=== PATIENT | male | born 1945 ===

== ENCOUNTER 2017-06-20 10:40 | Inpatient (IN) | payer MEDICARE ==
[~2017-06-20] VITALS: Ht 165.1 cm; Wt 74.4 kg
[2017-06-20] MEDS ORDERED: MAGNESIUM HYDROXIDE 30 ML LIQUID UDC PO PRN ×2 (11:00→13:30)
[2017-06-20] MEDS ORDERED: ACETAMINOPHEN 325 MG TABLET PO PRN (11:00)
[2017-06-20] MEDS ORDERED: Z GUARD REMEDY PASTE 57 GM TUBE TOP PRN (11:00)
--- NOTE | 2017-06-20 12:00 | NUR ---
SBAR report received from Piedad THOMASON at [facility]. PT received arriving via private car, accompanied by son Chandana. Pt oriented to unit and room. Board updated. VS taken to be 146/64, 63, 18, 97% RA, 98.0 temp, and denies pain at this time. Pt assessed, no evidence of SOB, skin intact with 3 old scars, 1 on the right side of the head, left of the upper and lower abd, and left hip to knee. AOx4. Bed in lowest and locked position with side rails up x2. Son visiting at the bedside currently sitting up to eat lunch. All needs attended to. Call light within reach, will continue to monitor.
[2017-06-20] MEDS ORDERED: MAGN400O6 PO (13:10)
[2017-06-20] MEDS ORDERED: LEVE500T9 PO (13:10)
[2017-06-20] MEDS ORDERED: NYST50002 PO (13:10)
[2017-06-20] MEDS ORDERED: ALBU2.5V38 IH (13:10)
[2017-06-20] MEDS ORDERED: FAMO20TA41 PO (13:10)
[2017-06-20] MEDS ORDERED: ZOLP5TAB2 PO (13:10)
[2017-06-20] MEDS ORDERED: ENOX40DI SQ (13:10)
[2017-06-20] MEDS ORDERED: AMIO200T2 PO (13:10)
[2017-06-20] MEDS ORDERED: NA P133E RC (13:10)
[2017-06-20] MEDS ORDERED: TAMS-3 PO (13:10)
[2017-06-20] MEDS ORDERED: DOCU-141 PO (13:10)
[2017-06-20] MEDS ORDERED: MULT-30 PO (13:10)
[2017-06-20] MEDS ORDERED: ATOR20TA PO (13:10)
[2017-06-20] MEDS ORDERED: ACET-2154 PO (13:10)
[2017-06-20] MEDS ORDERED: BISA10SU8 RC (13:10)
[2017-06-20] MEDS ORDERED: BISACODYL 10 MG SUPP.RECT RC PRN (13:30)
[2017-06-20] MEDS: ENOXAPARIN SODIUM 40 MG/0.4 ML DISP.SYRIN SQ SCH (13:30)
[2017-06-20] MEDS ORDERED: FLEET ENEMA 133 ML BOTTLE RC PRN (13:30)
[2017-06-20 15:20] LABS: BASOPHILS # (AUTO) 0.1 K/uL (0.0-8.0); BASOPHILS % (AUTO) 0.7 % (0.0-2.0); EOSINOPHILS # (AUTO) 0.1 K/uL (0.0-0.7); EOSINOPHILS % (AUTO) 1.7 % (0.0-7.0); HEMATOCRIT 45.2 % (36.7-47.1); HEMOGLOBIN 15.1 g/dL (12.5-16.3); LYMPHOCYTES # (AUTO) 2.5 K/uL (20.0-40.0); LYMPHOCYTES % (AUTO) 29.3 % (20.5-51.5); MEAN CORPUSCULAR HEMOGLOBIN 31.2 uug (23.8-33.4); MEAN CORPUSCULAR HGB CONC 33 g/dL (32.5-36.3); MEAN CORPUSCULAR VOLUME 93.5 fL (73.0-96.2); MONOCYTES # (AUTO) 0.8 K/uL (2.0-10.0); MONOCYTES % (AUTO) 8.7 % (0.0-11.0); NEUTROPHILS # (AUTO) 5.1 K/uL (1.8-8.9); NEUTROPHILS % (AUTO) 59.6 % (38.5-71.5); PLATELET COUNT (AUTO) 208 K/uL (152-348); RED BLOOD CELL COUNT(AUTO) 4.83 MIL/uL (4.06-5.63); WHITE BLOOD COUNT (AUTO) 8.6 K/uL (3.6-10.2)
[2017-06-20 15:29] LABS: BILIRUBIN,TOTAL 0.3 mg/dL (0.2-1.0); CREATININE 1.6 mg/dL (0.6-1.3); MAGNESIUM 1.8 mg/dL (1.8-2.4); PHOSPHOROUS 3.2 mg/dL (2.5-4.9); POTASSIUM 4.8 mmol/L (3.5-5.1); TOTAL PROTEIN, SERUM 7.2 g/dL (6.4-8.2)
[2017-06-20 16:04] VITALS: BP 139/77
[2017-06-20] MEDS ORDERED: NYSTATIN 500000 UNIT PO SCH (17:00)
[2017-06-20] MEDS: DOCUSATE SODIUM 100 MG CAPSULE PO SCH ×2 (17:47→20:32)
[2017-06-20] MEDS: LEVETIRACETAM 500 MG TABLET PO SCH (17:48)
[2017-06-20] MEDS: NYSTATIN SUSPENSION 5 ML LIQUID UDC PO SCH (17:48)
[2017-06-20] MEDS ORDERED: ALBUTEROL SULFATE 2.5 MG/3 ML NEBU IH SCH (18:00)
[2017-06-20] MEDS ORDERED: ACETAMINOPHEN 325 MG TABLET PO SCH (18:00)
--- NOTE | 2017-06-20 19:30 | NUR ---
Received patient in bed. Family at bedside. Patient is alert and verbally responsive. Able to make needs known. Denies any pain and discomfort. No acute distress. No SOB. Kept clean and dry. All needs attended to promptly. Call light within reach. Will continue to monitor.
[2017-06-20] MEDS: ATORVASTATIN 20 MG TABLET PO SCH (20:31)
[2017-06-20] MEDS: TAMSULOSIN HCL 0.4 MG CAP.SR.24H PO SCH (20:31)
[2017-06-20] MEDS: FAMOTIDINE 20 MG TABLET PO SCH (20:31)
[2017-06-20] MEDS: ZOLPIDEM 5 MG TABLET PO SCH (20:34)
[2017-06-20 20:39] VITALS: BP 144/64
[2017-06-20] MEDS: ALBUTEROL SULFATE 2.5 MG/3 ML NEBU NEB SCH (23:30)
[2017-06-21] MEDS: ALBUTEROL SULFATE 2.5 MG/3 ML NEBU NEB SCH ×3 (05:30→19:00)
[2017-06-21 05:48] VITALS: BP 99/130
[2017-06-21 05:51] VITALS: BP 130/78
--- NOTE | 2017-06-21 06:40 | NUR ---
Patient slept throughout the night. No c/o pain and discomfort. No acute distress. No SOB. Kept clean and dry. All needs attended to promptly. Call light within reach. Will continue to monitor.
[2017-06-21 08:00] VITALS: BP 116/62
--- NOTE | 2017-06-21 08:10 | NUR ---
Received patient awake, alert x4, resting in bed. Denies any pain. Not in any form of distress. Still with left sided weakness. Morning care done.
[2017-06-21] MEDS: DOCUSATE SODIUM 100 MG CAPSULE PO SCH ×3 (08:44→20:29)
[2017-06-21] MEDS: MULTIVIT, IRON, MIN NO. 8, FA TABLET PO SCH (08:44)
[2017-06-21] MEDS: NYSTATIN SUSPENSION 5 ML LIQUID UDC PO SCH ×3 (08:44→17:16)
[2017-06-21] MEDS: FAMOTIDINE 20 MG TABLET PO SCH ×2 (08:45→20:30)
[2017-06-21] MEDS: LEVETIRACETAM 500 MG TABLET PO SCH ×2 (08:45→17:16)
[2017-06-21] MEDS: AMIODARONE HCL 200 MG TABLET PO SCH (08:46)
[2017-06-21] MEDS: ENOXAPARIN SODIUM 40 MG/0.4 ML DISP.SYRIN SQ SCH (08:49)
[2017-06-21] MEDS ORDERED: [UNRECOGNIZED DRUG - OTHER] PO SCH (09:00)
--- NOTE | 2017-06-21 10:53 | NUR ---
Up with physical therapy, tolerating therapy well. No pain or discomfort noted.
--- NOTE | 2017-06-21 19:30 | NUR ---
Received patient in bed. Patient is alert and verbally responsive. Able to make needs known. Denies any pain and discomfort. No acute distress. No SOB. Kept clean and dry. All needs attended to promptly. Call light within reach. Will continue to monitor
[2017-06-21 20:24] VITALS: BP 127/64
[2017-06-21] MEDS: ATORVASTATIN 20 MG TABLET PO SCH (20:30)
[2017-06-21] MEDS: TAMSULOSIN HCL 0.4 MG CAP.SR.24H PO SCH (20:30)
[2017-06-21] MEDS: ZOLPIDEM 5 MG TABLET PO SCH (20:30)
--- NOTE | 2017-06-21 21:04 | NUR ---
Patient has been refusing scheduled Ambien the past two nights and verbalizes that he doesn't needed. Dr. Cameron made aware and received order to discontinue medication. Order noted and carried out.
[2017-06-22] MEDS: ALBUTEROL SULFATE 2.5 MG/3 ML NEBU NEB SCH ×4 (00:32→18:54)
[2017-06-22 05:00] VITALS: BP 122/64
--- NOTE | 2017-06-22 06:20 | NUR ---
Patient slept comfortably throughout the night. No c/o pain and discomfort. No acute distress. No SOB. Kept clean and dry. All needs attended to promptly. Call light within reach. Will continue to monitor.
[2017-06-22 08:00] VITALS: BP 136/75
--- NOTE | 2017-06-22 08:00 | NUR ---
Received patient awake, alert x4. Morning care done. No SOB noted, still with left sided weakness. No complaints of pain.
--- NOTE | 2017-06-22 09:00 | NUR ---
Up with speech therapy, tolerating therapy well. No complaints of pain or discomfort.
[2017-06-22] MEDS: DOCUSATE SODIUM 100 MG CAPSULE PO SCH ×3 (09:18→20:19)
[2017-06-22] MEDS: FAMOTIDINE 20 MG TABLET PO SCH ×2 (09:18→20:19)
[2017-06-22] MEDS: NYSTATIN SUSPENSION 5 ML LIQUID UDC PO SCH ×3 (09:18→17:21)
[2017-06-22] MEDS: AMIODARONE HCL 200 MG TABLET PO SCH (09:19)
[2017-06-22] MEDS: MULTIVIT, IRON, MIN NO. 8, FA TABLET PO SCH (09:19)
[2017-06-22] MEDS: LEVETIRACETAM 500 MG TABLET PO SCH ×2 (09:19→17:21)
[2017-06-22] MEDS: ENOXAPARIN SODIUM 40 MG/0.4 ML DISP.SYRIN SQ SCH (09:21)
--- NOTE | 2017-06-22 11:47 | NUR ---
Patient found on floor beside his wheel chair. Call light within reach. According to patient, he wanted to move from his wheelchair to hid bed and he said "I know I could have called since I can reach the call light." Patient said he slid from his wheel chair because his foot got caught up with the wheels of the wheel chair while he was trying to move. No wounds or injuries noted. Patient denies of any pain. Patient claims he landed on his buttocks. No injury to head. No LOC, dizziness or SOB noted. Informed Dr. Cameron and Dr Martins of incident. Informed Lens Marker Hui of incident. No new orders. Son, Chandana Bruner informed of incident.
--- NOTE | 2017-06-22 13:30 | NUR ---
Dr Cameron informed of fall once again, has no new orders.
--- NOTE | 2017-06-22 13:46 | NUR ---
INTERDISCIPLINARY TEAM CONFERENCE
[2017-06-22 16:00] VITALS: BP 142/78
--- NOTE | 2017-06-22 18:15 | NUR ---
No BM. Offered prune juice
[2017-06-22 19:30] VITALS: BP 136/57
--- NOTE | 2017-06-22 19:30 | NUR ---
Patient stable at start of shift with no acute distress noted. A/Ox4 & able to make all needs known. Pertinent assessment completed. Vital signs within range at start of shift. Per day shift RN, patient had a fall during the day. NNO from MD. Patient denies pain & SOB. Bed in low position & locked. Call light within reach of patient. Will continue to monitor through shift.
[2017-06-22] MEDS: TAMSULOSIN HCL 0.4 MG CAP.SR.24H PO SCH (20:19)
[2017-06-22] MEDS: ATORVASTATIN 20 MG TABLET PO SCH (20:19)
[2017-06-23] MEDS: ALBUTEROL SULFATE 2.5 MG/3 ML NEBU NEB SCH ×4 (00:31→18:30)
--- NOTE | 2017-06-23 06:30 | NUR ---
Upon skin care this AM, patient noted with a small skin tear in sacral area. Pics taken & placed in chart. Will endorse to day shift nurse to f/u with wound care nurse.
[2017-06-23 08:02] VITALS: BP 121/69
--- NOTE | 2017-06-23 08:28 | NUR ---
PT AWAKE ALERT RESPONSIVE ON ROOM AIR SHOWING NO SIGNS OF RESPIRATORY DISTRESS OR SOB. BREATHING TX OFFERED BUT PATIENT REFUSED AND STATES THAT HIS BREATHING IS FINE. BREATH SOUNDS CLEAR AND SPO2 96%. WILL CONTINUE TO MONITOR.
[2017-06-23] MEDS: FAMOTIDINE 20 MG TABLET PO SCH ×2 (09:12→20:14)
[2017-06-23] MEDS: LEVETIRACETAM 500 MG TABLET PO SCH ×2 (09:13→17:09)
[2017-06-23] MEDS: AMIODARONE HCL 200 MG TABLET PO SCH (09:13)
[2017-06-23] MEDS: DOCUSATE SODIUM 100 MG CAPSULE PO SCH ×3 (09:14→20:14)
[2017-06-23] MEDS: MULTIVIT, IRON, MIN NO. 8, FA TABLET PO SCH (09:14)
[2017-06-23] MEDS: NYSTATIN SUSPENSION 5 ML LIQUID UDC PO SCH ×3 (09:16→17:10)
[2017-06-23] MEDS: ENOXAPARIN SODIUM 40 MG/0.4 ML DISP.SYRIN SQ SCH (09:16)
--- NOTE | 2017-06-23 19:30 | NUR ---
PT ALERT AND ORIENTED. NO DISTRESS NOTED. COMPLIANT WITH NURSING CARE. SAFETY MAINTAINED. CALL LIGHT WITHIN REACH. WILL CONTINUE TO MONITOR.
[2017-06-23] MEDS: TAMSULOSIN HCL 0.4 MG CAP.SR.24H PO SCH (20:14)
[2017-06-23] MEDS: ATORVASTATIN 20 MG TABLET PO SCH (20:14)
[2017-06-23 20:39] VITALS: BP 113/60
[2017-06-24] MEDS: ALBUTEROL SULFATE 2.5 MG/3 ML NEBU NEB SCH ×4 (01:55→19:09)
--- NOTE | 2017-06-24 06:53 | NUR ---
PT ALERT AND ORIENTED IN BED. NO DISTRESS NOTED. SLEPT WELL THROUGHOUT THE NIGHT. NO COMPLAINTS OF PAIN. CLEAN AND DRY. COMPLIANT WITH NURSING CARE. SAFETY MAINTAINED. CALL LIGHT WITHIN REACH.
[2017-06-24 08:19] VITALS: BP 127/62
[2017-06-24] MEDS: NYSTATIN SUSPENSION 5 ML LIQUID UDC PO SCH ×3 (09:05→18:01)
[2017-06-24] MEDS: LEVETIRACETAM 500 MG TABLET PO SCH ×2 (09:05→18:01)
[2017-06-24] MEDS: MULTIVIT, IRON, MIN NO. 8, FA TABLET PO SCH (09:06)
[2017-06-24] MEDS: DOCUSATE SODIUM 100 MG CAPSULE PO SCH ×3 (09:06→21:26)
[2017-06-24] MEDS: AMIODARONE HCL 200 MG TABLET PO SCH (09:10)
[2017-06-24] MEDS: FAMOTIDINE 20 MG TABLET PO SCH ×2 (09:11→21:26)
[2017-06-24] MEDS: ENOXAPARIN SODIUM 40 MG/0.4 ML DISP.SYRIN SQ SCH (09:17)
[2017-06-24 16:04] VITALS: BP 145/62
[2017-06-24 19:30] VITALS: BP 127/62
--- NOTE | 2017-06-24 19:40 | NUR ---
Received pt in bed, appearing to be asleep but easily arousable to verbal stimuli and light touch. Verbally responsive and able to make needs known. Denies pain or discomfort at this time. No acute distress noted. All safety measures and fall precautions maintained. Call light and all personal belongings within reach. Will continue to monitor.
[2017-06-24] MEDS: TAMSULOSIN HCL 0.4 MG CAP.SR.24H PO SCH (21:26)
[2017-06-24] MEDS: ATORVASTATIN 20 MG TABLET PO SCH (21:26)
[2017-06-25] MEDS: ALBUTEROL SULFATE 2.5 MG/3 ML NEBU NEB SCH ×4 (00:27→19:14)
--- NOTE | 2017-06-25 06:59 | NUR ---
Pt SLEPT WELL THROUGHOUT THE NIGHT WITHOUT ANY DISRUPTIONS. IN STABLE CONDITION, NO DISTRESS NOTED. CONTINUES TO BE COMPLIANT AND COOPERATIVE WITH MEDS AND CARE STAFF.
[2017-06-25 08:00] VITALS: BP 132/69
[2017-06-25] MEDS: MULTIVIT, IRON, MIN NO. 8, FA TABLET PO SCH (08:13)
[2017-06-25] MEDS: NYSTATIN SUSPENSION 5 ML LIQUID UDC PO SCH ×3 (08:13→16:49)
[2017-06-25] MEDS: FAMOTIDINE 20 MG TABLET PO SCH ×2 (08:13→20:07)
[2017-06-25] MEDS: DOCUSATE SODIUM 100 MG CAPSULE PO SCH ×3 (08:13→20:07)
[2017-06-25] MEDS: LEVETIRACETAM 500 MG TABLET PO SCH ×2 (08:14→16:49)
[2017-06-25] MEDS: AMIODARONE HCL 200 MG TABLET PO SCH (08:14)
[2017-06-25] MEDS: ENOXAPARIN SODIUM 40 MG/0.4 ML DISP.SYRIN SQ SCH (08:17)
--- NOTE | 2017-06-25 09:50 | NUR ---
PT. IS ALERT AND ORIENTEDX3-4. NOT IN DISTRESS. NO COMPLAINT OF PAIN/DISCOMFORT DURING ROUNDS. WILL CONTINUE MONITOR
[2017-06-25 16:00] VITALS: BP 120/77
--- NOTE | 2017-06-25 16:02 | NUR ---
I agree Addendum: 06/25/17 at 1602 by CM JOHN OT Amended: Links added.
[2017-06-25 19:30] VITALS: BP 132/59
--- NOTE | 2017-06-25 20:00 | NUR ---
Received pt on bed alert and verbally responsive with no signs/symptoms of distress noted. No complaints of pain or discomfort. Breathing even and unlabored with normal respirations. All due meds given as ordered, no sign of aspiration noted. Kept clean, dry and comfortable. Vital signs WNL. Side rails up x2. Bed alarm on. Bed locked and in lowest position. Call light within reach. All needs attended.
[2017-06-25] MEDS: ATORVASTATIN 20 MG TABLET PO SCH (20:07)
[2017-06-25] MEDS: TAMSULOSIN HCL 0.4 MG CAP.SR.24H PO SCH (20:07)
[2017-06-26] MEDS: ALBUTEROL SULFATE 2.5 MG/3 ML NEBU NEB SCH ×4 (00:31→20:03)
[2017-06-26 07:58] VITALS: BP 122/78
[2017-06-26 08:00] VITALS: BP 122/78
[2017-06-26] MEDS: MULTIVIT, IRON, MIN NO. 8, FA TABLET PO SCH (08:03)
[2017-06-26] MEDS: LEVETIRACETAM 500 MG TABLET PO SCH ×2 (08:03→17:31)
[2017-06-26] MEDS: FAMOTIDINE 20 MG TABLET PO SCH ×2 (08:03→20:14)
[2017-06-26] MEDS: AMIODARONE HCL 200 MG TABLET PO SCH (08:05)
[2017-06-26] MEDS: NYSTATIN SUSPENSION 5 ML LIQUID UDC PO SCH ×3 (08:05→17:31)
[2017-06-26] MEDS: DOCUSATE SODIUM 100 MG CAPSULE PO SCH ×3 (08:05→20:14)
[2017-06-26] MEDS: ENOXAPARIN SODIUM 40 MG/0.4 ML DISP.SYRIN SQ SCH (09:15)
--- NOTE | 2017-06-26 14:17 | NUR ---
WOUND CARE CONSULT: PT PRESENTS WITH SACRAL DIMPLE. NO SKIN TEAR NOTED TO SACRUM. PT ABLE TO ASSIST WITH TURNING AND REPOSITIONING IN BED. ALL SKIN PROTECTION RECOMMENDATIONS MADE AND DISCUSSED WITH NURSING STAFF. WILL SEE PRN. HARRISON IN AGREEMENT WITH PLAN OF CARE. Addendum: 06/26/17 at 1418 by ANTHONY FATIMA RN Amended: Links added.
[2017-06-26] MEDS: ATORVASTATIN 20 MG TABLET PO SCH (20:14)
[2017-06-26] MEDS: TAMSULOSIN HCL 0.4 MG CAP.SR.24H PO SCH (20:14)
[2017-06-26 21:04] VITALS: BP 133/67
--- NOTE | 2017-06-26 21:55 | NUR ---
Received pt on bed alert and verbally responsive with no apparent distress noted. Family at bedside. denies pain or discomfort at this time. Breathing even and unlabored with normal respirations. Kept clean, dry and comfortable. Vital signs stable. Side rails up x2. Bed alarm on. Bed locked and in lowest position. encouraged to verbalize needs and concerns and to call for assistance if needed. Call light within reach. All needs attended.
[2017-06-27] MEDS: ALBUTEROL SULFATE 2.5 MG/3 ML NEBU NEB SCH ×4 (01:26→19:08)
[2017-06-27 05:22] VITALS: BP 129/64
[2017-06-27] MEDS: NYSTATIN SUSPENSION 5 ML LIQUID UDC PO SCH ×3 (08:13→16:15)
[2017-06-27 08:14] VITALS: BP 119/72
[2017-06-27] MEDS: ENOXAPARIN SODIUM 40 MG/0.4 ML DISP.SYRIN SQ SCH (08:14)
[2017-06-27] MEDS: MULTIVIT, IRON, MIN NO. 8, FA TABLET PO SCH (08:15)
[2017-06-27] MEDS: LEVETIRACETAM 500 MG TABLET PO SCH ×2 (08:15→16:15)
[2017-06-27] MEDS: FAMOTIDINE 20 MG TABLET PO SCH ×2 (08:15→20:32)
[2017-06-27] MEDS: AMIODARONE HCL 200 MG TABLET PO SCH (08:16)
[2017-06-27] MEDS: DOCUSATE SODIUM 100 MG CAPSULE PO SCH ×3 (08:16→20:32)
--- NOTE | 2017-06-27 09:49 | NUR ---
PT. IS ALERT AND ORIENTED X3. NOT IN DISTRESS. NO COMPLAINT OF PAIN/DISCOMFORT. WENT OUT ON PASS FOR OUTSIDE CONSULT AROUND 930AM IN STABLE CONDITION.
--- NOTE | 2017-06-27 12:24 | NUR ---
PT REFUSED TX AT THIS TIME NO DISTRESS NOTED AT THIS TIME. WILL CONTINUE TO MONITOR PT. PT NURSE AWARE.
--- NOTE | 2017-06-27 12:57 | NUR ---
PT . REFUSE TO TAKE BREATHING TREATMENT ACCORDING TO RESPIRATORY STAFF, DESPITE OF ENCOURAGEMENT AND EDUCATION. NOT IN DISTRESS. OXY SAT: 95%. WILL CONTINUE MONITOR
[2017-06-27 17:15] VITALS: BP 125/62
--- NOTE | 2017-06-27 18:09 | NUR ---
PT. CAME BACK FROM RADIATION THERAPY AROUND 1120AM IN STABLE CONDITION. NO COMPLAINT VOICED. WILL CONTINUE MONITOR
--- NOTE | 2017-06-27 20:00 | NUR ---
Received pt on bed alert, awake and oriented x3. no acute distress noted. Family at bedside during this time. No complaints of pain or discomfort. Breathing even and unlabored with normal respirations. Vital signs WNL. Safety and fall precautions observed and maintained. encouraged to verbalize needs and concerns and to call for assistance if needed. Call light within reach. All needs attended.
[2017-06-27] MEDS: TAMSULOSIN HCL 0.4 MG CAP.SR.24H PO SCH (20:32)
[2017-06-27] MEDS: ATORVASTATIN 20 MG TABLET PO SCH (20:32)
[2017-06-27 21:08] VITALS: BP 143/69
[2017-06-28] MEDS: ALBUTEROL SULFATE 2.5 MG/3 ML NEBU NEB SCH ×4 (01:30→19:44)
[2017-06-28 06:42] VITALS: BP 122/73
[2017-06-28 08:00] VITALS: BP 118/60
[2017-06-28] MEDS: NYSTATIN SUSPENSION 5 ML LIQUID UDC PO SCH ×3 (09:41→16:53)
[2017-06-28] MEDS: DOCUSATE SODIUM 100 MG CAPSULE PO SCH ×3 (09:41→20:53)
[2017-06-28] MEDS: LEVETIRACETAM 500 MG TABLET PO SCH ×2 (09:42→16:53)
[2017-06-28] MEDS: FAMOTIDINE 20 MG TABLET PO SCH ×2 (09:42→20:51)
[2017-06-28] MEDS: MULTIVIT, IRON, MIN NO. 8, FA TABLET PO SCH (09:42)
[2017-06-28] MEDS: AMIODARONE HCL 200 MG TABLET PO SCH (09:43)
[2017-06-28] MEDS: ENOXAPARIN SODIUM 40 MG/0.4 ML DISP.SYRIN SQ SCH (09:44)
--- NOTE | 2017-06-28 10:46 | NUR ---
I agree Addendum: 06/28/17 at 1046 by CM JOHN OT Amended: Links added.
--- NOTE | 2017-06-28 10:46 | NUR ---
I agree Addendum: 06/28/17 at 1047 by CM JOHN OT Amended: Links added.
[2017-06-28 15:33] VITALS: BP 120/72
--- NOTE | 2017-06-28 19:30 | NUR ---
Patient sleeping at start of shift with no acute distress noted. A/Ox4 & able to make all needs known. Pertinent assessment completed. Vital signs within range. Patient denies pain & SOB. LUE is flaccid & patient is unable to move extremity. All other extremities are intact & able functioning well. Bed in low position & locked. Call light placed within reach of patient. Will continue to monitor through shift.
[2017-06-28 20:24] VITALS: BP 130/70
[2017-06-28] MEDS: ATORVASTATIN 20 MG TABLET PO SCH (20:53)
[2017-06-28] MEDS: TAMSULOSIN HCL 0.4 MG CAP.SR.24H PO SCH (20:53)
[2017-06-29] MEDS: ALBUTEROL SULFATE 2.5 MG/3 ML NEBU NEB SCH ×5 (00:36→19:30)
[2017-06-29] MEDS: FAMOTIDINE 20 MG TABLET PO SCH ×2 (08:04→20:35)
[2017-06-29] MEDS: MULTIVIT, IRON, MIN NO. 8, FA TABLET PO SCH (08:04)
[2017-06-29] MEDS: DOCUSATE SODIUM 100 MG CAPSULE PO SCH ×3 (08:05→20:35)
[2017-06-29] MEDS: AMIODARONE HCL 200 MG TABLET PO SCH (08:05)
[2017-06-29] MEDS: LEVETIRACETAM 500 MG TABLET PO SCH ×2 (08:05→17:02)
[2017-06-29] MEDS: NYSTATIN SUSPENSION 5 ML LIQUID UDC PO SCH ×3 (08:05→17:01)
[2017-06-29] MEDS: ENOXAPARIN SODIUM 40 MG/0.4 ML DISP.SYRIN SQ SCH (08:06)
[2017-06-29 08:26] VITALS: BP 126/64
--- NOTE | 2017-06-29 09:11 | NUR ---
PT. IS ALERT AND ORIENTED. NOT IN DISTRESS. NO COMPLAINT VOICED. WILL CONTINUE MONITOR
--- NOTE | 2017-06-29 13:28 | NUR ---
INTERDISCIPLINARY TEAM CONFERENCE
[2017-06-29 14:00] VITALS: BP 134/78
--- NOTE | 2017-06-29 15:13 | NUR ---
I agree Addendum: 06/29/17 at 1513 by CM JOHN OT Amended: Links added.
--- NOTE | 2017-06-29 15:14 | NUR ---
I agree Addendum: 06/29/17 at 1514 by CM JOHN OT Amended: Links added.
--- NOTE | 2017-06-29 19:30 | NUR ---
Patient sleeping comfortably at start of shift with no acute distress noted. Patient is A/Ox4 & able to make all needs known. Vital signs within range at start of shift. Pertinent assessment completed. Bed in low position & locked. Call light & belongings within reach of patient. Will continue to monitor through shift.
[2017-06-29] MEDS: ATORVASTATIN 20 MG TABLET PO SCH (20:35)
[2017-06-29] MEDS: TAMSULOSIN HCL 0.4 MG CAP.SR.24H PO SCH (20:35)
[2017-06-29 20:39] VITALS: BP 133/63
[2017-06-30] MEDS: ALBUTEROL SULFATE 2.5 MG/3 ML NEBU NEB SCH ×4 (00:51→18:57)
[2017-06-30 07:55] VITALS: BP 112/71
[2017-06-30] MEDS: DOCUSATE SODIUM 100 MG CAPSULE PO SCH ×3 (09:13→20:26)
[2017-06-30] MEDS: ENOXAPARIN SODIUM 40 MG/0.4 ML DISP.SYRIN SQ SCH (09:13)
[2017-06-30] MEDS: FAMOTIDINE 20 MG TABLET PO SCH ×2 (09:13→20:26)
[2017-06-30] MEDS: MULTIVIT, IRON, MIN NO. 8, FA TABLET PO SCH (09:13)
[2017-06-30] MEDS: AMIODARONE HCL 200 MG TABLET PO SCH (09:14)
[2017-06-30] MEDS: NYSTATIN SUSPENSION 5 ML LIQUID UDC PO SCH ×3 (09:14→17:18)
[2017-06-30] MEDS: LEVETIRACETAM 500 MG TABLET PO SCH ×2 (09:14→17:18)
--- NOTE | 2017-06-30 12:11 | NUR ---
Patient noted sitting up in bed, no signs of distress, call light in reach, bed locked and in lowest position, x 2 bed rails, all AM medications taken without trouble, all needs met at this time
--- NOTE | 2017-06-30 19:30 | NUR ---
Patient is alert & awake with no acute distress noted. Pertinent assessment completed at start of shift. Vital signs within range. Denies pain & SOB. Encouraged patient to use call light. All belongings placed within reach of patient. Bed in low position & locked. Will continue to monitor through shift.
[2017-06-30 19:57] VITALS: BP 136/43
[2017-06-30] MEDS: ATORVASTATIN 20 MG TABLET PO SCH (20:26)
[2017-06-30] MEDS: TAMSULOSIN HCL 0.4 MG CAP.SR.24H PO SCH (20:26)
[2017-07-01] MEDS: ALBUTEROL SULFATE 2.5 MG/3 ML NEBU NEB SCH ×4 (00:39→18:31)
[2017-07-01 08:00] VITALS: BP 140/71
[2017-07-01] MEDS: ENOXAPARIN SODIUM 40 MG/0.4 ML DISP.SYRIN SQ SCH (08:31)
[2017-07-01] MEDS: MULTIVIT, IRON, MIN NO. 8, FA TABLET PO SCH (08:32)
[2017-07-01] MEDS: NYSTATIN SUSPENSION 5 ML LIQUID UDC PO SCH ×3 (08:32→17:54)
[2017-07-01] MEDS: LEVETIRACETAM 500 MG TABLET PO SCH ×2 (08:32→17:54)
[2017-07-01] MEDS: DOCUSATE SODIUM 100 MG CAPSULE PO SCH ×3 (08:32→20:21)
[2017-07-01] MEDS: FAMOTIDINE 20 MG TABLET PO SCH ×2 (08:32→20:21)
[2017-07-01] MEDS: AMIODARONE HCL 200 MG TABLET PO SCH (08:33)
[2017-07-01 16:33] VITALS: BP 136/75
--- NOTE | 2017-07-01 19:55 | NUR ---
Received pt on bed alert, awake and oriented x3 with no signs/symptoms of distress noted. No complaints of pain or discomfort. Breathing even and unlabored with normal respirations. Kept clean, dry and comfortable. Side rails up x2. Bed locked and in lowest position. Call light and personal belongings within reach. All needs attended.
[2017-07-01] MEDS: TAMSULOSIN HCL 0.4 MG CAP.SR.24H PO SCH (20:21)
[2017-07-01] MEDS: ATORVASTATIN 20 MG TABLET PO SCH (20:21)
[2017-07-01 21:38] VITALS: BP 141/71
[2017-07-02] MEDS: ALBUTEROL SULFATE 2.5 MG/3 ML NEBU NEB SCH ×2 (01:01→07:35)
[2017-07-02 05:02] VITALS: BP 135/67
[2017-07-02 07:15] VITALS: BP 126/57
[2017-07-02] MEDS: DOCUSATE SODIUM 100 MG CAPSULE PO SCH (08:21)
[2017-07-02] MEDS: NYSTATIN SUSPENSION 5 ML LIQUID UDC PO SCH ×2 (08:21→13:00)
[2017-07-02] MEDS: LEVETIRACETAM 500 MG TABLET PO SCH (08:21)
[2017-07-02] MEDS: ENOXAPARIN SODIUM 40 MG/0.4 ML DISP.SYRIN SQ SCH (08:23)
[2017-07-02] MEDS: MULTIVIT, IRON, MIN NO. 8, FA TABLET PO SCH (08:23)
[2017-07-02] MEDS: AMIODARONE HCL 200 MG TABLET PO SCH (08:23)
[2017-07-02] MEDS: FAMOTIDINE 20 MG TABLET PO SCH (08:23)
--- NOTE | 2017-07-02 08:23 | NUR ---
I agree Addendum: 07/02/17 at 0824 by CM JOHN OT Amended: Links added.
--- NOTE | 2017-07-02 08:23 | NUR ---
I agree Addendum: 07/02/17 at 0823 by CM JOHN OT Amended: Links added.
--- NOTE | 2017-07-02 08:33 | NUR ---
PT. RECEIVED AWAKE, ALERT AND ORIENTEDX3, WILL GO HOME AROUND 9AM IN STABLE CONDITION. MD NOTIFIED. MEDICINE AND HEALTH INSTRUCTION GIVEN, VERBALIZE UNDERSTANDING.
--- NOTE | 2017-07-02 09:40 | NUR ---
PT DISCHARGE TO HOME IN STABLE CONDITION AROUND 910AM WITH SON IN PRIVATE TRANSPORTATION.
== END 2017-07-02 09:10 | disposition home health service (06) | DRG 841 ==
PROVIDERS: ADMIT Physical Medicine & Rehabilitation Pain Medicine; ATTEND Physical Medicine & Rehabilitation Pain Medicine
DX: C85.90 Non-Hodgkin lymphoma, unspecified, unspecified site (principal); G81.94 Hemiplegia, unspecified affecting left nondominant side; I12.9 Hypertensive chronic kidney disease with stage 1 through stage 4 chronic kidney disease, or unspecified chronic kidney disease; N18.9 Chronic kidney disease, unspecified; I25.10 Atherosclerotic heart disease of native coronary artery without angina pectoris; G51.0 Bell's palsy; Z90.5 Acquired absence of kidney; K21.9 Gastro-esophageal reflux disease without esophagitis; R53.1 Weakness; R73.9 Hyperglycemia, unspecified; Y92.129 Unspecified place in nursing home as the place of occurrence of the external cause; T38.0X5A Adverse effect of glucocorticoids and synthetic analogues, initial encounter; Z92.21 Personal history of antineoplastic chemotherapy; J98.01 Acute bronchospasm; Z92.3 Personal history of irradiation
CPT/HCPCS: 36415; 83735; 84100; 85025; 92507; 92523; 94640; 94664; 97110; 97112; 97116; 97530; 97535; A4663; J1650